=== PATIENT | male | born 1945 | race Caucasian/White ===

== ENCOUNTER 2020-06-15 19:48 | Observation (INO) ==
--- NOTE | 2020-06-15 20:23 | ERNOTE ---
Medical Problem HPI - General Chief Complaint: General Assessment Time Seen by Provider: 06/15/20 20:03 Source: patient Exam Limitations: no limitations - Immun/Allergies/Home Medications Immunizations: IMMUNIZATION HX Immunizations Up to Date Yes Allergies/Adverse Reactions: Allergies meperidine [From Demerol] Allergy (Unknown, Verified 06/15/20 19:53) Home Medications: HOME MEDICATIONS Albuterol Sulfate [Albuterol Sulfate 0.63 MG/3ML] 0.63 mg IH 06/15/20 [Last Taken Unknown] Albuterol Sulfate/Ipratropium [Duoneb 2.5-0.5MG/3ML Soln] 3 ml IH QID 06/15/20 [Last Taken Unknown] Aspirin 81 mg PO DAILY 06/15/20 [Last Taken Unknown] Budesonide/Formoterol Fumarate [Symbicort 160-4.5 Mcg Inhaler] 6 gm IH DAILY 06/15/20 [Last Taken Unknown] Buspirone HCl 60 mg PO DAILY 06/15/20 [Last Taken Unknown] Cyclobenzaprine HCl 10 mg PO prn PRN 06/15/20 [Last Taken Unknown] Docusate Sodium [Stool Softener] 50 mg PO 06/15/20 [Last Taken Unknown] Fluticasone Propionate [Flonase] 2 spray NS BID 06/15/20 [Last Taken Unknown] LORazepam [Ativan] 0.5 mg PO TID PRN 06/15/20 [Last Taken Unknown] Lovastatin [Altoprev] 40 mg PO HS 06/15/20 [Last Taken Unknown] Naproxen 500 mg PO DAILY 06/15/20 [Last Taken Unknown] Nitroglycerin [Nitrostat] 0.3 mg SL Q5M 06/15/20 [Last Taken Unknown] Nortriptyline HCl [Pamelor] 75 mg PO DAILY 06/15/20 [Last Taken Unknown] Omeprazole 20 mg PO DAILY 06/15/20 [Last Taken Unknown] Oxybutynin Chloride [Oxybutynin Chloride ER] 5 mg PO DAILY 06/15/20 [Last Taken Unknown] Polyethylene Glycol 3350 [Miralax] 17 gm PO DAILY 06/15/20 [Last Taken Unknown] Prazosin HCl 2 mg PO DAILY 06/15/20 [Last Taken Unknown] Topiramate [Topiramate ER] 25 mg PO DAILY 06/15/20 [Last Taken Unknown] Venlafaxine HCl [Venlafaxine HCl ER] 37.5 mg PO DAILY 06/15/20 [Last Taken Unknown] - History of Present History Narrative: Patient accidentally [place] and broke through the ice and was submerged up to his nipple line for up to 2 hours. He is unsure of the timeframe. Rescuers had to go out on the ice and extract him from the vehicle. He was going to be directly transferred to [facility] helicopter from EMS but they felt that the patient was too cold that they would be unable to warm the patient over the flight time and felt he would need to be warmed somewhat before transport. Timing: constant Severity: moderate Review of Systems - Review of Systems Constitutional: Absent: recent illness ENT: Absent: nose congestion, nasal drainage Respiratory: Present: stridor. Absent: shortness of breath Cardiology: Present: chest pain Gastrointestinal/Abdominal: Absent: nausea, vomiting Skin: Present: change in color Neurological: Present: tingling Medical History (Last Reviewed 06/16/20 @ 01:15 by Carlos Bobby DO) COPD (chronic obstructive pulmonary disease) History of anxiety History of back injury History of depression History of posttraumatic stress disorder (PTSD) Hyperlipemia Kidney stones Prostate cancer Surgical History: Surgical History (Last Reviewed 06/16/20 @ 01:15 by Carlos Bobby DO) History of back surgery History of hip surgery History of prostate surgery Cancer Hx of knee surgery Hx of shoulder surgery Right Family History: Family History (Last Reviewed 06/16/20 @ 01:15 by Carlos Bobby DO) Other No pertinent family history Social History: (Last Reviewed 06/16/20 @ 01:15 by Carlos Bobby DO) Social History: lives independently: Yes household members: spouse Physical Exam - Physical Exam General Appearance: Present: wd/wn, alert, moderate distress Head Exam: Present: normal inspection, no evidence of injury Eye Exam: Normal inspection: bilateral Ears, Nose, Throat: Present: normal ENT inspection Neck: Present: normal inspection Respiratory: Present: no respiratory distress, normal breath sounds Cardiovascular/Chest: Present: tachycardia Gastrointestinal/Abdominal: Present: normal bowel sounds, nontender Extremity Exam: Present: normal except - - Without cyanosis. There is mildly slowed cap refill. Neurological Exam: Present: alert, oriented, normal mood/affect Skin Exam: Present: other - There is a reddened area on the right upper buttock that is approximately 15 cm x 8 cm. It is blanchable. Progress - Results and Orders Patient's Lab Results:: I have reviewed the patient's lab results. Results and Orders: Laboratory Tests 06/15/20 06/15/20 06/15/20 20:19 20:19 20:19 WBC 15.3 H Hgb 12.9 L Hct 40.9 L Plt Count 248 PT 11.3 H INR (Anticoag Therapy) 1.09 H PTT ([place]) 20.5 L Sodium 140 Potassium 4.3 Chloride 108 H Anion Gap 21.6 H BUN 22 Creatinine 2.21 H Random Glucose 166 H Calcium 8.4 Total Bilirubin 0.3 AST 21 ALT 32 Urine Color Urine Appearance Urine pH Ur Specific [place] Urine Protein Urine Glucose (UA) Urine Ketones Urine Blood Urine Nitrate Ur Leukocyte Esterase Urine Culture Comments 06/15/20 20:19 WBC Hgb Hct Plt Count PT INR (Anticoag Therapy) PTT ([place]) Sodium Potassium Chloride Anion Gap BUN Creatinine Random Glucose Calcium Total Bilirubin AST ALT Urine Color Yellow Urine Appearance Clear Urine pH 6.0 Ur Specific [place] >=1.030 Urine Protein 30 H Urine Glucose (UA) Negative Urine Ketones Negative Urine Blood Negative Urine Nitrate Negative Ur Leukocyte Esterase Negative Urine Culture Comments No culture indicated Laboratory Tests 06/15/20 23:00 SARS-CoV-2 (PCR) Not detected - Vital Signs Patient's Vital Signs:: I have reviewed the patient's vital signs. Vital Signs: Vital Signs 06/15/20 19:49 Temperature 34.6 C L Pulse Rate 128 H Respiratory Rate 27 H Blood Pressure 152/100 H O2 Sat by Pulse Oximetry 100 - Progress/Reassessment Chief Complaint: General Assessment Progress:: Improved Progress Note-Subjective: 06/15/20 20:30 As the patient came in just prior to my shift starting Dr. Angulo had heard about this patient and had expected the patient to go directly to [facility]. When the patient arrived, Dr. Angulo called [facility] and began the transfer process for me. When [facility] called back I spoke with Dr. Chanel and he felt that the patient did not need to be transferred due to his temperature being in the mild hypothermia range. 06/15/20 20:57 We got a hold of the patient's and found [facility] so we will contact the [place]. 06/15/20 22:40 When nursing talked to the [facility], the [facility] stated that the patient has a very good coverage and could stay here as well as he could come up there. I talked with the patient, his and daughter and they felt like they would much rather have him stay here which is closer to home and they would stay in town and be here in the morning in case of discharge. Patient is improving and I feel like that would be a good alternative. 06/15/20 22:[address] Sandoval and she agrees with observation admission overnight with cardiac monitoring. Departure Clinical Impression: Hypothermia due to exposure - Departure Disposition: Still a patient Condition: Good
[2020-06-15 20:24] LABS: Hematocrit 40.9 % (42.0-52.0); Hemoglobin 12.9 gm/dL (13.5-18.0); Mean Cell Volume 102.3 fl (78-100); Mean Corpuscular Hemoglobin 32.3 pg (27-31); Mean Corpuscular Hgb Conc 31.5 g/dl (32-36); Mean Platelet Volume 9.8 fl (8-11.3); Platelet Count 248 K/mm3 (150-450); Red Cell Distribution Width 13.2 % (11.5-14.0); White Blood Count 15.3 K/mm3 (4.0-10.5)
[2020-06-15 20:33] LABS: Urine Bilirubin Negative (NEGATIVE); Urine Blood Negative /ul (NEGATIVE); Urine Ketone Negative (NEGATIVE); Urine Nitrite Negative (NEGATIVE); Urine Protein 30 mg/dL (NEGATIVE); Urine Specific Gravity >=1.030 SP.GR. (1.005-1.030); Urine Urobilinogen Normal (NORMAL)
[2020-06-15 20:39] LABS: Albumin * 3.8 gm/dl (3.4-5.0); Anion Gap 21.6 mmol/L (6.8-13.8); Bilirubin, Total 0.3 mg/dL (0.0-1.1); Ca. Corrected For Albumin 8.2 mg/dL (8.4-10.2); Calcium * 8.4 mg/dL (7.9-10.9); Carbon Dioxide 14.7 mmol/L (24-32.6); Potassium 4.3 mmol/L (3.4-4.6); Total Protein 7.2 gm/dL (6.2-8.2)
[2020-06-15 20:43] LABS: Urine Appearance Clear (CLEAR); Urine Color Yellow; Urine RBC None Seen /hpf (0-5); Urine WBC TRACE /hpf (0-5)
[2020-06-15 20:44] LABS: Urine Bacteria TRACE; Urine Mucus Few - 1+
[2020-06-15 20:45] LABS: INR 1.09 INR (0.92-1.08); Prothrombin Time (Patient) 11.3 Seconds (9.1-10.7)
[2020-06-15] MEDS ORDERED: NITROGLYCERIN 0.4 MG/TAB BTL SL ONE (20:45)
[2020-06-15 20:46] LABS: Partial Thrombolplastin Time 20.5 Seconds (24-32)
[2020-06-15 22:01] LABS: CK Total * 283 U/L (0-259); Lipase 86 U/L (73-393)
[2020-06-15] MEDS ORDERED: NORMAL SALINE 1,000 ML IV PRN (22:06)
[2020-06-15] MEDS ORDERED: NORMAL SALINE 1,000 ML IV ONE ×2 (22:39→22:42)
[2020-06-16] MEDS ORDERED: NEOMYCIN/BACITRACIN/POLYMYXINB 15 APPL TUBE TP PRN (03:52)
[2020-06-16] MEDS ORDERED: BACITRACIN ZINC 30 APPL TUBE TP ONE (04:18)
--- NOTE | 2020-06-16 10:05 | HPDIS ---
Chief Complaint - Chief Complaint Date of Service: 06/16/20 Time of Service: 09:45 Chief Complaint: I feel better since warming up just have some numbness in my fingertip History of Present Illness: 74-year-old male admitted for observation of hypothermia was evaluated bedside this morning was found to be afebrile and in no acute distress. Aggressive measures to warm up the patient were taken since he arrived to the hospital and now he maintains a normal body temperature. He maintains stable vitals throughout the night and had no major concerns. He only complains of numbness into his fingertips which is most likely due to the cold temperature that he was exposed to yesterday, he was reassured that this is expected and just needs to be monitored. Given these findings we will discharge patient home to follow-up with his PCP. Medical History (Last Reviewed 06/16/20 @ 01:15 by Carlos Bobby DO) COPD (chronic obstructive pulmonary disease) History of anxiety History of back injury History of depression History of posttraumatic stress disorder (PTSD) Hyperlipemia Kidney stones Prostate cancer Surgical History: Surgical History (Last Reviewed 06/16/20 @ 01:15 by Carlos Bobby DO) History of back surgery History of hip surgery History of prostate surgery Cancer Hx of knee surgery Hx of shoulder surgery Right Family History: Family History (Last Updated 06/16/20 @ 01:38 by Yuli Jackson RN) Mother No pertinent family history Other Heart failure Social History: (Last Reviewed 06/16/20 @ 01:15 by Carlos Bobby DO) Social History: lives independently: Yes household members: spouse Peds Patient Hx - Developmental: No Pertinent Hx Peds Patient Hx - Medical: No Pertinent Hx Peds Patient Hx - Cardiac/Respiratory: No Pertinent Hx Peds Patient Hx - Surgical: No Surgical History Patient History - Cancer: No Hx of Cancer Review Of Systems (GEN) - Review of Systems Generalized/Overall Review: Present: No Symptoms Reported EENTM: Present: No Symptoms Reported Respiratory: Present: No Symptoms Reported Cardiac: Present: No Symptoms Reported Abdominal: Present: No Symptoms Reported Genitourinary: Present: No Symptoms Reported Musculoskeletal: Present: No Symptoms Reported Neurological: Present: No Symptoms Reported Skin: Present: No Symptoms Reported Endocrine: Present: No Symptoms Reported Immunizations: IMMUNIZATION HX Immunizations Up to Date Yes Allergies/Adverse Reactions: Allergies Allergy/AdvReac Type Severity Reaction Status Date / Time meperidine [From Demerol] Allergy Unknown Verified 06/15/20 19:53 Home Medications: HOME MEDICATIONS Albuterol Sulfate [Albuterol Sulfate 0.63 MG/3ML] 0.63 mg IH 06/15/20 [Last Taken Unknown] Albuterol Sulfate/Ipratropium [Duoneb 2.5-0.5MG/3ML Soln] 3 ml IH QID 06/15/20 [Last Taken Unknown] Aspirin 81 mg PO DAILY 06/15/20 [Last Taken Unknown] Budesonide/Formoterol Fumarate [Symbicort 160-4.5 Mcg Inhaler] 6 gm IH DAILY 06/15/20 [Last Taken Unknown] Buspirone HCl 10 mg PO BID 06/15/20 [Last Taken Unknown] Cyclobenzaprine HCl 5 mg PO prn PRN 06/15/20 [Last Taken Unknown] Docusate Sodium [Stool Softener] 100 mg PO DAILY 06/15/20 [Last Taken Unknown] Fluticasone Propionate [Flonase] 2 spray NS BID 06/15/20 [Last Taken Unknown] LORazepam [Ativan] 0.5 mg PO TID PRN 06/15/20 [Last Taken Unknown] Lovastatin [Altoprev] 40 mg PO HS 06/15/20 [Last Taken Unknown] Naproxen 500 mg PO DAILY 06/15/20 [Last Taken Unknown] Nitroglycerin [Nitrostat] 0.3 mg SL Q5M 06/15/20 [Last Taken Unknown] Nortriptyline HCl [Pamelor] 75 mg PO DAILY 06/15/20 [Last Taken Unknown] Omeprazole 20 mg PO DAILY 06/15/20 [Last Taken Unknown] Oxybutynin Chloride [Oxybutynin Chloride ER] 5 mg PO DAILY 06/15/20 [Last Taken Unknown] Polyethylene Glycol 3350 [Miralax] 17 gm PO DAILY 06/15/20 [Last Taken Unknown] Prazosin HCl 2 mg PO DAILY 06/15/20 [Last Taken Unknown] Topiramate [Topiramate ER] 75 mg PO HS 06/15/20 [Last Taken Unknown] Venlafaxine HCl [Venlafaxine HCl ER] 300 mg PO DAILY 06/15/20 [Last Taken Unknown] Tiotropium [place] 18 mcg IH DAILY 06/16/20 [Last Taken Unknown] Zyrtec 10 mg PO DAILY 06/16/20 [Last Taken Unknown] Exam - Exam Vital Signs: Vital Signs - Last Taken Temp 36.8 C 06/16/20 07:04 Pulse 89 06/16/20 07:04 Resp 14 06/16/20 07:04 BP 134/66 06/16/20 07:04 Pulse Ox 94 06/16/20 07:04 Constitutional: Present: Alert, Oriented x3, Cooperative, Well developed, Well nourished, No distress ENT Exam: Present: normal ENT inspection, hearing grossly normal Eye Exam: bilateral eye: normal inspection, PERRL, EOMI Neck: Present: non-tender, full range of motion, supple, normal inspection, trachea midline Back Exam: Present: normal inspection, no CVA tenderness, CVA tenderness (L) Respiratory: Present: chest non-tender, lungs clear, normal breath sounds, no respiratory distress, no accessory muscle use Cardiovascular/Chest: Present: normal peripheral pulses, regular rate, rhythm, no chest tenderness, no edema, no gallop, no JVD, no murmur, no rub Abdomen: Present: Normal bowel sounds, soft, nontender, nondistended, no rebound tenderness, no hepatospenomegaly, no masses /Rectal: Present: Exam deferred Extremity: Present: normal range of motion, non-tender, normal inspection, no pedal edema, no calf tenderness, normal capillary refill Skin Exam: Present: normal color, warm/dry, no cyanosis Lymphatic: Present: no adenopathy Neurologic: Present: sterilisation technician II-XII nml as tested, no motor/sensory deficits, alert, normal mood/affect, oriented x 3 Eye contact: Present: cooperative, good eye contact, normal speech Thoughts: Present: normal thought pattern, no apparent hallucination Diagnostic Studies: Abnormal Lab Results 06/15/20 06/15/20 06/15/20 Range/Units 20:19 20:19 20:19 WBC 15.3 H (4.0-10.5) K/mm3 RBC 4.00 L (4.7-6.0) M/mm3 Hgb 12.9 L (13.5-18.0) gm/dL Hct 40.9 L (42.0-52.0) % MCV 102.3 H (78-100) fl MCH 32.3 H (27-31) pg MCHC 31.5 L (32-36) g/dl PT 11.3 H (9.1-10.7) Seconds INR (Anticoag Therapy) 1.09 H (0.92-1.08) INR PTT ([place]) 20.5 L (24-32) Seconds Chloride 108 H (97-106) mmol/L Carbon Dioxide 14.7 L (24-32.6) mmol/L Anion Gap 21.6 H (6.8-13.8) mmol/L Creatinine 2.21 H (0.4-1.4) mg/dL Est GFR (Non-Af Amer) 31 L (60-130) mL/min Random Glucose 166 H (70-110) mg/dL Lactic Acid, Venous (0.4-2.0) mmol/L Calcium Adj for Albumin 8.2 L (8.4-10.2) mg/dL Creatine Kinase (0-259) U/L Urine Protein (NEGATIVE) mg/dL Urine Mucus (NONE) 06/15/20 06/15/20 06/15/20 Range/Units 20:19 20:19 20:19 WBC (4.0-10.5) K/mm3 RBC (4.7-6.0) M/mm3 Hgb (13.5-18.0) gm/dL Hct (42.0-52.0) % MCV (78-100) fl MCH (27-31) pg MCHC (32-36) g/dl PT (9.1-10.7) Seconds INR (Anticoag Therapy) (0.92-1.08) INR PTT ([place]) (24-32) Seconds Chloride (97-106) mmol/L Carbon Dioxide (24-32.6) mmol/L Anion Gap (6.8-13.8) mmol/L Creatinine (0.4-1.4) mg/dL Est GFR (Non-Af Amer) (60-130) mL/min Random Glucose (70-110) mg/dL Lactic Acid, Venous 7.8 H* (0.4-2.0) mmol/L Calcium Adj for Albumin (8.4-10.2) mg/dL Creatine Kinase 283 H (0-259) U/L Urine Protein 30 H (NEGATIVE) mg/dL Urine Mucus Few - 1+ H (NONE) Laboratory Results WBC 15.3 K/mm3 (4.0-10.5) H 06/15/20 20:19 RBC 4.00 M/mm3 (4.7-6.0) L 06/15/20 20:19 Hgb 12.9 gm/dL (13.5-18.0) L 06/15/20 20:19 Hct 40.9 % (42.0-52.0) L 06/15/20 20:19 MCV 102.3 fl (78-100) H 06/15/20 20:19 MCH 32.3 pg (27-31) H 06/15/20 20:19 MCHC 31.5 g/dl (32-36) L 06/15/20 20:19 RDW 13.2 % (11.5-14.0) 06/15/20 20:19 Plt Count 248 K/mm3 (150-450) 06/15/20 20:19 MPV 9.8 fl (8-11.3) 06/15/20 20:19 PT 11.3 Seconds (9.1-10.7) H 06/15/20 20:19 INR (Anticoag Therapy) 1.09 INR (0.92-1.08) H 06/15/20 20:19 PTT ([place]) 20.5 Seconds (24-32) L 06/15/20 20:19 Sodium 140 mmol/L (132-142) 06/15/20 20:19 Plasma Sodium 141 mmol/L (130-142) 06/15/20 20:19 Potassium 4.3 mmol/L (3.4-4.6) 06/15/20 20:19 Chloride 108 mmol/L (97-106) H 06/15/20 20:19 Carbon Dioxide 14.7 mmol/L (24-32.6) L 06/15/20 20:19 Anion Gap 21.6 mmol/L (6.8-13.8) H 06/15/20 20:19 BUN 22 mg/dL (6-23) 06/15/20 20:19 Creatinine 2.21 mg/dL (0.4-1.4) H 06/15/20 20:19 Est GFR (Non-Af Amer) 31 mL/min (60-130) L 06/15/20 20:19 BUN/Creatinine Ratio 10.0 (9.0-21.6) 06/15/20 20:19 Random Glucose 166 mg/dL (70-110) H 06/15/20 20:19 Lactic Acid, Venous 0.7 mmol/L (0.4-2.0) 06/16/20 00:33 Calcium 8.4 mg/dL (7.9-10.9) 06/15/20 20: Calcium Adj for Albumin 8.2 mg/dL (8.4-10.2) L 06/15/20 20:19 Total Bilirubin 0.3 mg/dL (0.0-1.1) 06/15/20 20: AST 21 U/L (0-48) 06/15/20 20: ALT 32 U/L (19-67) 06/15/20 20:19 Alkaline Phosphatase 146 U/L (50-170) 06/15/20 20:19 Creatine Kinase 283 U/L (0-259) H 06/15/20 20:19 Troponin I Less than 0.017 ng/mL (0.00-0.10) 06/15/20 20:19 Total Protein 7.2 gm/dL (6.2-8.2) 06/15/20 20:19 Albumin 3.8 gm/dl (3.4-5.0) 06/15/20 20: Lipase 86 U/L (73-393) 06/15/20 20:19 Urine Color Yellow 06/15/20 20:19 Urine Appearance Clear (CLEAR) 06/15/20 20: Urine pH 6.0 pH (5.0-7.0) 06/15/20 20:19 Ur Specific [place] >=1.030 SP.GR. (1.005-1.030) 06/15/20 20:19 Urine Protein 30 mg/dL (NEGATIVE) H 06/15/20 20:19 Urine Glucose (UA) Negative mg/dL (NEGATIVE) 06/15/20 20: Urine Ketones Negative mg/dL (NEGATIVE) 06/15/20 20:19 Urine Blood Negative /ul (NEGATIVE) 06/15/20 20: Urine Nitrate Negative (NEGATIVE) 06/15/20 20: Urine Bilirubin Negative mg/dl (NEGATIVE) 06/15/20 20: Urine Urobilinogen Normal EU/dl (NORMAL) 06/15/20 20: Ur Leukocyte Esterase Negative /ul (NEGATIVE) 06/15/20 20: Urine RBC None seen /hpf (0-5) 06/15/20 20: Urine WBC Trace /hpf (0-5) 06/15/20 20:19 Ur Epithelial Cells Trace /hpf (0-5) 06/15/20 20: Urine Bacteria Trace (NONE) 06/15/20 20: Urine Mucus Few - 1+ (NONE) H 06/15/20 20: Urine Culture Comments No culture indicated 06/15/20 20: SARS-CoV-2 (PCR) Not detected (NotDetected) 06/15/20 23:00 Assessment/Plan - Narrative Narrative: Patient was admitted to the Medr floor for overnight monitoring. - Assessment/Plan (1) Hypothermia due to exposure Problem: Resolved (1) Hypothermia due to exposure Problem: Acute Date of Discharge:: 06/16/20 Hospital Course: The patient had an uneventful night and reports feeling better than when he arrived, his body temperature is now within normal range and his cardiac and pulmonary exams were nonconcerning. Given these findings we had decided to discharge the patient home with instructions to follow-up with his PCP in 5 days. During bedside evaluation it was explained to patient that it is no longer safe for him to be driving given his increasing confusion and cognitive deficits. He told me that his feels the same way and has been convincing him not to drive, so the message was reiterated for safety. Procedures Performed: none Results and Findings: Lab Pending Results 06/15/20:: WBC 15.3 H, RBC 4.00 L, Hgb 12.9 L, Hct 40.9 L, MCV 102.3 H, MCH 32.3 H, MCHC 31.5 L, RDW 13.2, Plt Count 248, MPV 9.8 06/15/20 20:19: PT 11.3 H, INR (Anticoag Therapy) 1.09 H, PTT ([place]) 20.5 L 06/15/20 20:: Sodium 140, Plasma Sodium 141, Potassium 4.3, Chloride 108 H, Carbon Dioxide 14.7 L, Anion Gap 21.6 H, BUN 22, Creatinine 2.21 H, Est GFR (Non-Af Amer) 31 L, BUN/Creatinine Ratio 10.0, Random Glucose 166 H, Calcium 8.4, Calcium Adj for Albumin 8.2 L, Total Bilirubin 0.3, AST 21, ALT 32, Alkaline Phosphatase 146, Total Protein 7.2, Albumin 3.8 06/15/20 20:19: Urine Color Yellow, Urine Appearance Clear, Urine pH 6.0, Ur Specific [place] >=1.030, Urine Protein 30 H, Urine Glucose (UA) Negative, Urine Ketones Negative, Urine Blood Negative, Urine Nitrate Negative, Urine Bilirubin Negative, Urine Urobilinogen Normal, Ur Leukocyte Esterase Negative, Urine RBC None seen, Urine WBC Trace, Ur Epithelial Cells Trace, Urine Bacteria Trace, Urine Mucus Few - 1+ H, Urine Culture Comments No culture indicated 06/15/20 20:19: Troponin I Less than 0.017 06/15/20 20:19: Creatine Kinase 283 H, Lipase 86 06/15/20 20:19: Lactic Acid, Venous 7.8 H* 06/15/20 23:00: SARS-CoV-2 (PCR) Not detected 06/16/20 00:33: Lactic Acid, Venous 0.7 Discharge Location: Home Disposition: Home self-care Condition: Good Face to Face Encounter completed per [facility] Guidelines: No Discharge Activity: Activity as tolerated Discharge Diet: General/regular food Complete Home Medications List: Complete Home Medication List: Albuterol Sulfate [Albuterol Sulfate 0.63 MG/3ML] 0.63 mg IH 06/15/20 Albuterol Sulfate/Ipratropium [Duoneb 2.5-0.5MG/3ML Soln] 3 ml IH QID 06/15/20 Aspirin 81 mg PO DAILY 06/15/20 Budesonide/Formoterol Fumarate [Symbicort 160-4.5 Mcg Inhaler] 6 gm IH DAILY 06/15/20 Buspirone HCl 10 mg PO BID 06/15/20 Cyclobenzaprine HCl 5 mg PO prn PRN 06/15/20 Docusate Sodium [Stool Softener] 100 mg PO DAILY 06/15/20 Fluticasone Propionate [Flonase] 2 spray NS BID 06/15/20 LORazepam [Ativan] 0.5 mg PO TID PRN 06/15/20 Lovastatin [Altoprev] 40 mg PO HS 06/15/20 Naproxen 500 mg PO DAILY 06/15/20 Nitroglycerin [Nitrostat] 0.3 mg SL Q5M 06/15/20 Nortriptyline HCl [Pamelor] 75 mg PO DAILY 06/15/20 Omeprazole 20 mg PO DAILY 06/15/20 Oxybutynin Chloride [Oxybutynin Chloride ER] 5 mg PO DAILY 06/15/20 Polyethylene Glycol 3350 [Miralax] 17 gm PO DAILY 06/15/20 Prazosin HCl 2 mg PO DAILY 06/15/20 Topiramate [Topiramate ER] 75 mg PO HS 06/15/20 Venlafaxine HCl [Venlafaxine HCl ER] 300 mg PO DAILY 06/15/20 Tiotropium [place] 18 mcg IH DAILY 06/16/20 Zyrtec 10 mg PO DAILY 06/16/20
[2020-06-16 13:08] VITALS: BP 120/78
== END 2020-06-16 13:11 | disposition home or self-care (01) ==
LOC: ER 19:48 → MS 19:48
PROVIDERS: ADMIT Family Medicine; ATTEND Family Medicine
DX: T68.XXXA Hypothermia, initial encounter